=== PATIENT | male | born 1985 | race Caucasian/White ===

== ENCOUNTER 2016-09-04 17:09 | Emergency (ER) | payer BC | END 2016-09-04 21:20 | disposition home or self-care (01) | LOC: ER 17:09 | DX: S30.863A Insect bite (nonvenomous) of scrotum and testes, initial encounter (principal); R53.1 Weakness; R53.83 Other fatigue; R51 Headache; F17.220 Nicotine dependence, chewing tobacco, uncomplicated; Z88.0 Allergy status to penicillin; W57.XXXA Bitten or stung by nonvenomous insect and other nonvenomous arthropods, initial encounter | CPT/HCPCS: 36415; 87476 ==